=== PATIENT | male | born 1955 | race Two or more races ===

== ENCOUNTER → 2018-02-01 | Outpatient (CLI) | payer BC ==
--- NOTE | 2018-02-01 22:47 | XCELERA REPORT ---
[address] [address] Transthoracic Echocardiogram Report Name: ROSITA RODGERS Age: 62 yrs Gender: Male : 1955 Patient Status: Outpatient Patient Location: Study Date: 02/01/2018 03:31 PM Height: 71 in Weight: 214 lb BSA: 2.2 m2 Reason For Study: MURMUR Ordering Physician: GABY GARCIA Performed By: Marisa Jhaveri Interpretation Summary Heart murmur is due to aortic valvular sclerosis with no stenosis, no AR. Although no LVH, the LVEF is normal at 60% but there is evidence of LVDD, with no LV enlargement. Wall motion abnormality is seen in IVS and inferior wall. MV shows no MS, and only mild MR but there may be LA enlargement (BRAYDEN not measured) TR is mild and RVSP is sl elevated 32 mm Hg with RAP est. at 3 mm Hg MMode/2D Measurements & Calculations RVDd: 3.0 cm LVIDd: 5.4 cm FS: 38.6 % Ao root diam: 3.1 cm IVSd: 0.90 cm LVIDs: 3.3 cm EDV(Teich): 142.1 ml LVPWd: 0.94 cm ESV(Teich): 44.8 ml Ao root area: 7.5 cm2 EF(Teich): 68.4 % LA dimension: 4.2 cm Doppler Measurements & Calculations MV E max david: MV P1/2t max david: Ao V2 max: LV V1 max P.0 cm/sec 113.0 cm/sec 171.6 cm/sec 7.8 mmHg MV A max david: MV P1/2t: 66.6 msec Ao max PG: LV V1 max: 110.1 cm/sec 11.8 mmHg 139.7 cm/sec MV E/A: 1.0 MVA(P1/2t): 3.3 cm2 MV dec slope: 497.2 cm/sec2 MV dec time: 0.21 sec PA V2 max: TR max david: 75.5 cm/sec 270.1 cm/sec PA max PG: TR max P.2 mmHg 2.3 mmHg Left Ventricle The left ventricle is grossly normal size. LV EF is 60%. The E/E' ratio between the mitral E wave and the mitral annulus E' wave is abnormal, with a value of > 10. There is septal wall moderate hypokinesis. There is inferior wall mild hypokinesis. There is no thrombus. Right Ventricle The right ventricle is normal in size, thickness and function. Atria The right atrium is normal. The left atrial size is normal. The interatrial septum is intact with no evidence for an atrial septal defect. Mitral Valve There is mild mitral leaflet calcification. The mitral valve is normal in structure and function. There is no evidence of mitral valve prolapse. There is no mitral valve stenosis. There is a trace amount of mitral regurgitation. Aortic Valve The aortic valve opens well. The aortic valve is calcified. The aortic valve is trileaflet. There is no aortic valvular vegetation. There is no aortic valve stenosis. No aortic regurgitation is present. Tricuspid Valve The tricuspid is normal in structure and function. There is no tricuspid valve prolapse. There is no tricuspid stenosis. Right ventricular systolic pressure is estimated to be elevated at 30-40mmHg. There is a mild amount of tricuspid regurgitation. Pulmonic Valve The pulmonic valve is not well visualized. There is no pulmonic valvular regurgitation. Great Vessels The aortic root is normal size. 35mm. Effusions There is no pericardial effusion. I WMSI = 1.53 % Normal = 47 Segments Size X - Cannot 1 - Normal 2 - 3 - Akinetic4 - 1-2 small Interpret Hypokinetic Dyskinetic 3-5 moderate 5 - 6-14 large Aneurysmal 15-16 diffuse : GABY GARCIA > Michael Escoto
== END ==
LOC: SP 14:57
PROVIDERS: ATTEND Physician Assistant
DX: R01.1 Cardiac murmur, unspecified (principal)
CPT/HCPCS: 93306

== ENCOUNTER → 2018-02-23 | Outpatient (CLI) | payer BC ==
--- NOTE | 2018-02-23 18:49 | RADIOLOGY REPORT (SQ) ---
EXAM DESCRIPTION: KNEE RIGHT 4 VIEWS COMPLETED DATE/TIME: 02/23/2018 5:58 pm REASON FOR STUDY: PAIN IN RT KNEE M25.561 PAIN IN RIGHT KNEE COMPARISON: None. NUMBER OF VIEWS: Four views. TECHNIQUE: AP, lateral, and both oblique radiographic images acquired of the right knee. LIMITATIONS: None. FINDINGS: MINERALIZATION: Normal. BONES: No acute fracture or dislocation. No worrisome bone lesions. JOINT: No effusion. SOFT TISSUES: No soft tissue swelling. No radio-opaque foreign body. OTHER: No other significant finding. IMPRESSION: NEGATIVE STUDY OF THE RIGHT KNEE. NO RADIOGRAPHIC EVIDENCE OF ACUTE INJURY. TECHNICAL DOCUMENTATION: JOB ID: [id number] [employer]- All Rights Reserved Reading location - IP/workstation name: [email or web address]
== END ==
LOC: OD 17:15
PROVIDERS: ATTEND Physician Assistant
DX: M25.561 Pain in right knee (principal)